=== PATIENT | male | born 1980 | race African-American/Black ===

== ENCOUNTER 2017-08-01 00:39 | Emergency (ER) | payer OTHER ==
[2017-08-01 01:13] VITALS: BP 129/85; PULSE 65; TEMP 97.9; BMI 28.5
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
== END 2017-08-01 01:52 | disposition home or self-care (01) ==
LOC: JER 00:39
DX: J20.9 Acute bronchitis, unspecified (principal); F17.210 Nicotine dependence, cigarettes, uncomplicated
CPT/HCPCS: 99281-25

== ENCOUNTER 2019-05-04 22:43 | Emergency (ER) | payer OTHER ==
[2019-05-04] MEDS ORDERED: ACETAMINOPHEN INJECTION 100 ML IVPB ONE (23:23)
[2019-05-04] MEDS ORDERED: ACETAMINOPHEN 1000 MG/100 ML VIAL (NON FORMULARY) IVPB ONE (23:25)
[2019-05-04] MEDS ORDERED: LIDOCAINE 1%/EPI 1:100000 (50 ML MULTI DOSE VIAL) INF ONE (23:29)
[2019-05-04 23:32] LABS: BASO % 0.6 % (0-2.0); EOS % 1.3 % (0-4.5); HEMATOCRIT 43.9 % (35.4-49); HEMOGLOBIN 14.5 GM/dL (11.7-16.9); LYMPH % 30.6 % (8-40); MCH 30.3 pg (25.7-33.7); MCHC 33.1 g/dl (32.0-35.9); MEAN CELL VOLUME 91.7 fl (80-96); MEAN PLT VOLUME 7.5 fl (7.5-11.1); MONO % 6.6 % (3.8-10.2); NEUT % 60.9 % (42.8-82.8); PLATELET COUNT 286 K/MM3 (134-434); RBC 4.78 M/mm3 (4.00-5.60); RDW 13.2 % (11.9-15.9); WHITE BLOOD COUNT 10.8 K/mm3 (4.0-10.0)
[2019-05-04] MEDS ORDERED: LIDOCAINE 1%/EPI 1:100000 (20 ML MULTI DOSE VIAL) ONE (23:39)
[2019-05-04 23:50] LABS: INR 0.93 (0.83-1.09)
[2019-05-05 00:03] LABS: ALBUMIN 3.8 g/dl (3.4-5.0); BILIRUBIN,TOTAL 0.3 mg/dL (0.2-1); CALCIUM 8.7 mg/dL (8.5-10.1); CREATININE 1.3 mg/dL (0.55-1.3); POTASSIUM 3.4 mmol/L (3.5-5.1); TOT PROT 6.9 g/dl (6.4-8.2)
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
[2019-05-05 00:21] VITALS: BMI 25.8
[2019-05-05] MEDS ORDERED: TETANUS AND DIPHTHERIA TOXOID 0.5 ML DISP.SYRIN IM ONE (00:30)
[2019-05-05] MEDS ORDERED: DIPHTH,PERTUSS(ACELL),TET 0.5 ML DISP.SYRIN IM ONE (01:33)
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
[2019-05-05 08:49] VITALS: BP 122/84; PULSE 74; TEMP 98.3
== END 2019-05-05 08:49 | disposition home or self-care (01) ==
LOC: JER 22:43
PROC: 3E0234Z Introduction of Serum, Toxoid and Vaccine into Muscle, Percutaneous Approach (ICD-10-PCS; principal; 2019-05-04)
DX: R51 Headache (principal); W50.0XXA Accidental hit or strike by another person, initial encounter; Y93.89 Activity, other specified; Y92.89 Other specified places as the place of occurrence of the external cause; Z88.8 Allergy status to other drugs, medicaments and biological substances; F17.210 Nicotine dependence, cigarettes, uncomplicated; J45.909 Unspecified asthma, uncomplicated
CPT/HCPCS: 36415; 70450-TC; 71045-TC-FY; 72070-TC-FY; 72125-TC; 74176-TC; 80053; 80307; 85025; 85610; 86850; 86900; 86901; 99285-25; J0131

== ENCOUNTER 2023-09-01 11:58 | Observation (INO) | payer OTHER ==
[2023-09-01 12:18] VITALS: BMI 30.5
[2023-09-01 14:56] LABS: BASO % 0.9 % (0-2.0); EOS % 0.2 % (0-4.5); HEMATOCRIT 40.7 % (35.4-49); HEMOGLOBIN 13.5 GM/dL (11.7-16.9); LYMPH % 16.8 % (8-40); MCH 30.7 pg (25.7-33.7); MCHC 33.1 g/dl (32.0-35.9); MEAN CELL VOLUME 92.8 fl (80-96); MEAN PLT VOLUME 7.3 fl (7.5-11.1); MONO % 7.2 % (3.8-10.2); NEUT % 74.9 % (42.8-82.8); PLATELET COUNT 270 10^3/uL (134-434); RBC 4.39 M/mm3 (4.00-5.60); RDW 14.3 % (11.9-15.9); WHITE BLOOD COUNT 14.7 K/mm3 (4.0-10.0)
[2023-09-01] MEDS: PERMETHRIN 5% TOPICAL CREAM 60 GM TUBE TP ONE (14:59)
[2023-09-01 15:03] LABS: INR 0.95 (0.83-1.09)
[2023-09-01 15:06] LABS: ACTIVATED PTT 24.6 SECONDS (25.2-36.5)
[2023-09-01 15:47] LABS: ALBUMIN 3.6 g/dl (3.4-5.0); BILIRUBIN,TOTAL 0.3 mg/dL (0.2-1); CALCIUM 8.7 mg/dL (8.5-10.1); CREATININE 0.9 mg/dL (0.55-1.3); POTASSIUM 4.7 mmol/L (3.5-5.1); TOT PROT 6.6 g/dl (6.4-8.2)
[2023-09-02 07:58] LABS: METHADONE, UR NEGATIVE (NEGATIVE); URINE AMPHETAMINES NEGATIVE (NEGATIVE); URINE BENZODIAZEPINES NEGATIVE (NEGATIVE)
[2023-09-02 07:59] LABS: COCAINE, UR NEGATIVE (NEGATIVE); OPIATES, URI NEGATIVE (NEGATIVE); URINE BARBITURATES NEGATIVE (NEGATIVE)
[2023-09-02 08:09] LABS: PHENCYCLIDINE,URINE POSITIVE (NEGATIVE)
[2023-09-02 08:26] LABS: HEMATOCRIT 40.1 % (35.4-49); HEMOGLOBIN 13.5 GM/dL (11.7-16.9); MCH 30.9 pg (25.7-33.7); MCHC 33.6 g/dl (32.0-35.9); MEAN PLT VOLUME 7.8 fl (7.5-11.1); PLATELET COUNT 257 10^3/uL (134-434); RBC 4.36 M/mm3 (4.00-5.60); RDW 14.5 % (11.9-15.9); WHITE BLOOD COUNT 11.5 K/mm3 (4.0-10.0)
[2023-09-02 09:06] LABS: POTASSIUM 3.6 mmol/L (3.5-5.1)
[2023-09-02 09:12] LABS: ALBUMIN 3.1 g/dl (3.4-5.0); BLOOD UREA NITROGEN 15.8 mg/dL (7-18); CALCIUM 8.1 mg/dL (8.5-10.1); MAGNESIUM 2.3 mg/dL (1.8-2.4)
[2023-09-02 09:14] LABS: LDL CHOLESTEROL (ONLY SJRH) 65 mg/dL (5-100)
[2023-09-02 09:15] LABS: CHOLESTEROL 138 mg/dL (50-200); CREATININE 0.9 mg/dL (0.55-1.3); HDL CHOLESTEROL 53 mg/dL (40-60); PHOSPHOROUS 4.4 mg/dL (2.5-4.9)
[2023-09-02 09:17] LABS: BILIRUBIN,TOTAL 0.2 mg/dL (0.2-1); TOT PROT 5.7 g/dl (6.4-8.2)
[2023-09-02] MEDS: PERMETHRIN 5% TOPICAL CREAM 60 GM TUBE TP SCH (11:11)
[2023-09-02] MEDS: FOLIC ACID 1 MG TABLET (FP) PO SCH (11:12)
[2023-09-02] MEDS: THIAMINE HCL 100 MG TABLET (FP) PO SCH (11:12)
[2023-09-03 09:22] LABS: BASO % 0.5 % (0-2.0); HEMATOCRIT 41.9 % (35.4-49); HEMOGLOBIN 14.3 GM/dL (11.7-16.9); LYMPH % 29.6 % (8-40); MCH 31.3 pg (25.7-33.7); MCHC 34.1 g/dl (32.0-35.9); MEAN CELL VOLUME 91.6 fl (80-96); MEAN PLT VOLUME 7.6 fl (7.5-11.1); MONO % 8.5 % (3.8-10.2); NEUT % 53.4 % (42.8-82.8); PLATELET COUNT 252 10^3/uL (134-434); RBC 4.57 M/mm3 (4.00-5.60); RDW 14.3 % (11.9-15.9); WHITE BLOOD COUNT 9.5 K/mm3 (4.0-10.0)
[2023-09-03] MEDS: ENOXAPARIN NA (PORCINE) 40 MG/0.4 ML DISP.SYRIN SQ SCH (10:30)
[2023-09-03 13:04] LABS: URINE APPEARANCE CLEAR; URINE BILIRUBIN NEGATIVE (NEGATIVE); URINE COLOR YELLOW; URINE GLUCOSE (UA) NEGATIVE (NEGATIVE); URINE KETONE NEGATIVE (NEGATIVE); URINE LEUK ESTERASE NEGATIVE (NEGATIVE); URINE NITRITE NEGATIVE (NEGATIVE); URINE PROTEIN NEGATIVE (NEGATIVE); URINE UROBILINOGEN 0.2 mg/dL (0.2-1.0)
[2023-09-04] MEDS: ACETAMINOPHEN 1000 MG/100 ML BAG IVPB ONE (02:21)
[2023-09-04] MEDS: GABAPENTIN 100 MG CAPSULE PO SCH (10:33)
[2023-09-04 15:46] VITALS: BP 110/77; PULSE 81; RESP 20; TEMP 98.1
== END 2023-09-04 17:54 | disposition home or self-care (01) ==
LOC: JER 11:58 → JERBED 13:27 → J8W 09-02 00:27
PROVIDERS: ADMIT Internal Medicine; ATTEND Nurse Practitioner Family
DX: M62.81 Muscle weakness (generalized) (principal); R29.898 Other symptoms and signs involving the musculoskeletal system; B85.2 Pediculosis, unspecified; B86 Scabies; Z29.9 Encounter for prophylactic measures, unspecified; Z88.8 Allergy status to other drugs, medicaments and biological substances
CPT/HCPCS: 36415; 70450-TC; 80053; 80061; 80307; 81003; 82607; 82746; 83036; 83735; 84100; 84443; 85025; 85027; 85610; 85730; 86850; 86900; 86901; 87086; 93005; 93010; 96372; 96374; 97116-GP; 97161-GP; 99285-25; G0378; J0131

== ENCOUNTER 2023-10-16 12:13 | Emergency (ER) | payer OTHER ==
[2023-10-16 12:45] VITALS: BP 137/77; PULSE 70; RESP 18; TEMP 98; BMI 31.1
[2023-10-16] MEDS ORDERED: diphenhydrAMINE HCL 25 MG CAPSULE (FP) PO ONE (13:51)
[2023-10-16] MEDS: diphenhydrAMINE HCL 25 MG CAPSULE (FP) PO ONE (13:58)
[2023-10-16] MEDS: PERMETHRIN 5% TOPICAL CREAM 60 GM TUBE TP ONE ×2 (17:05→18:06)
== END 2023-10-16 19:16 | disposition home or self-care (01) ==
LOC: JER 12:13
DX: R21 Rash and other nonspecific skin eruption (principal); B85.1 Pediculosis due to Pediculus humanus corporis
CPT/HCPCS: 99283-25

== ENCOUNTER 2023-10-31 06:15 | Emergency (ER) | payer OTHER ==
[2023-10-31 06:21] VITALS: BMI 31.8
[2023-10-31] MEDS ORDERED: ACETAMINOPHEN 500 MG TABLET (FP) ONE (07:30)
[2023-10-31] MEDS ORDERED: diphenhydrAMINE HCL 25 MG CAPSULE (FP) PO ONE (07:30)
[2023-10-31] MEDS: ACETAMINOPHEN 500 MG TABLET (FP) PO ONE (07:45)
[2023-10-31] MEDS: diphenhydrAMINE HCL 25 MG CAPSULE (FP) PO ONE (07:45)
[2023-10-31] MEDS: PERMETHRIN 5% TOPICAL CREAM 60 GM TUBE TP ONE ×2 (09:35→12:48)
[2023-10-31 10:14] VITALS: BP 140/95; PULSE 66; RESP 17; TEMP 98.3
[2023-10-31 11:05] LABS: SYPHILIS W/ RPR CONF NON-REACTIVE (NONREACTIVE)
[2023-10-31 11:34] LABS: HIV INTERPRETATION NEGATIVE (NEGATIVE)
== END 2023-10-31 20:16 | disposition home or self-care (01) ==
LOC: JER 06:15
DX: B85.1 Pediculosis due to Pediculus humanus corporis (principal); R21 Rash and other nonspecific skin eruption; L29.9 Pruritus, unspecified
CPT/HCPCS: 36415; 86780; 87389; 87491; 87536; 87591; 99283-25

== ENCOUNTER 2023-11-06 05:16 | Emergency (ER) | payer OTHER ==
[2023-11-06 05:36] VITALS: BP 128/73; PULSE 84; RESP 18; TEMP 98.1; BMI 28.5
[2023-11-06] MEDS: PERMETHRIN 5% TOPICAL CREAM 60 GM TUBE TP ONE (06:39)
[2023-11-06] MEDS ORDERED: CLOTRIMAZOLE 1%TOPICAL SOLUTION 30 ML BOTTLE TP SCH (10:00)
[2023-11-06] MEDS ORDERED: CLOTRIMAZOLE 1% CREAM TP SCH (10:00)
[2023-11-06] MEDS ORDERED: CLOTRIMAZOLE 1% VAGINAL CREAM WITH APPLICATOR 45 GM TUBE VG SCH (22:00)
== END 2023-11-06 07:06 | disposition home or self-care (01) ==
LOC: JER 05:16
DX: R21 Rash and other nonspecific skin eruption (principal); B86 Scabies
CPT/HCPCS: 99283-25

== ENCOUNTER 2023-11-07 03:43 | Emergency (ER) | payer OTHER ==
[2023-11-07 03:54] VITALS: BP 111/58; PULSE 60; RESP 20; TEMP 98; BMI 29.8
[2023-11-07] MEDS: PERMETHRIN 5% TOPICAL CREAM 60 GM TUBE TP ONE (04:00)
== END 2023-11-07 04:23 | disposition home or self-care (01) ==
LOC: JER 03:43
DX: B86 Scabies (principal); L29.9 Pruritus, unspecified
CPT/HCPCS: 99283-25